=== PATIENT | female | born 1985 | race Asian ===

== ENCOUNTER 2020-02-07 10:49 | Emergency (ER) | payer BC ==
[~2020-02-07] VITALS: Ht 160 cm; Wt 62.1 kg
[2020-02-07 11:05] VITALS: Ht 160 cm; Wt 62.1 kg
[2020-02-07 13:40] LABS: BASOPHIL % 0.1 % (0-2); PLATELET COUNT 179 x10^3mcL (130-400); RED CELL DISTRIBUTION WIDTH 13.2 % (11.5-14.5)
[2020-02-07 14:26] LABS: CALCIUM 8.7 mg/dL (8.5-10.1); CARBON DIOXIDE 25.4 mmol/L (21-32); CHLORIDE SERUM 103 mmol/L (98-107); CREATININE SERUM 0.9 mg/dL (0.6-1.0); GFR1 > 60 mL/min; GLUCOSE SERUM 118 mg/dL (74-106); POTASSIUM SERUM 3.8 mmol/L (3.5-5.1); SODIUM SERUM 139 mmol/L (136-145)
[2020-02-07 14:31] LABS: ALKALINE PHOSPHATASE 70 U/L (46-116); ALT/SGPT 29 U/L (14-59); AST/SGOT 12 U/L (15-37); BILIRUBIN TOTAL 0.37 mg/dL (0.20-1.00); LIPASE 108 IU/L (73-393); TOTAL PROTEIN, SERUM 7.8 g/dL (6.4-8.2)
[2020-02-07 16:06] VITALS: BP 105/59
== END 2020-02-07 16:06 | disposition home or self-care (01) ==
LOC: ED 10:49
PROVIDERS: Specialist
DX: N23 Unspecified renal colic (principal); Z98.890 Other specified postprocedural states
CPT/HCPCS: J1885